=== PATIENT | female | born 1955 | race Caucasian/White ===

== ENCOUNTER 2017-12-20 09:06 | Emergency (ER) | payer OTHER ==
--- NOTE | 2017-12-20 09:11 | EDPHY ---
H & P Time Seen by Provider: 12/20/17 09:06 HPI/ROS: CHIEF COMPLAINT: Left ankle injury HISTORY OF PRESENT ILLNESS: Stepped wrong on it twisted it think she broke it. Can't walk on it. Arrives by EMS with ankle pain which is moderate, started just after she twisted it. Does not radiate. Not associated with weakness or numbness in the foot or knee or hip symptoms. REVIEW OF SYSTEMS: Eye: no change in vision ENT: no sore throat Cardiac: no chest pain or syncope Pulmonary: no cough or SOB Abdomen: no vomiting, diarrhea, abdominal pain Musculoskeletal: no back pain Skin: no rash Neuro: no headache Constitutional: no fever : no urinary symptoms A comprehensive 10 point review of systems is otherwise negative aside from elements mentioned in the history of present illness. 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 General Appearance: Alert and conversant, cooperative. Eyes: No scleral icterus. ENT, Mouth: Normal mucous membranes. Respiratory: Normal respiratory effort, breath sounds equal, lungs are clear to auscultation. Cardiovascular: Regular rate and rhythm. Normal dorsalis pedis pulse in the left foot. Gastrointestinal: Abdomen is soft and non tender. Neurological: Alert, face symmetric, normal motor and sensory in extremities, including the left foot. Skin: Warm and dry, no rashes. Musculoskeletal: Left ankle lateral tenderness and swelling extending down into the foot below the malleolus but no 5th metatarsal tenderness. Proximal tib-fib on the left leg is nontender in the remainder of the extremities nontender. Psychiatric: Not agitated. Emergency Department course/MDM: Declined pain medication initially. X-rays of the left foot and ankle ordered. 946: Oblique distal fibula fracture, nondisplaced. Boot, crutches, nonweightbearing, work comp or orthopedic follow-up tomorrow. Warned return to work will be determined by follow-up clinic. Constitutional: Initial Vital Signs Temperature (C) 36.7 C 12/20/17 09:17 Heart Rate 76 12/20/17 09:17 Respiratory Rate 16 12/20/17 09:17 Blood Pressure 177/114 H 12/20/17 09:17 O2 Sat (%) 94 12/20/17 09:17 O2 Delivery Mode Room Air Allergies/Adverse Reactions: No Known Drug Allergies Allergy (Verified 12/20/17 09:19) Medical Decision Making - Diagnostics Imaging Results: Imaging Impressions Ankle X-Ray 12/20/17 09:10 Impression: 1. Nondisplaced oblique fracture distal fibula below the ankle mortise level. 2. Calcific fragment adjacent to the distal aspect of the calcaneus near the calcaneocuboid joint that could represent a small chip or avulsion fracture with adjacent soft tissue swelling. 3. Moderate cortical/periosteal thickening along the lateral aspect of the fourth metatarsal shaft. This could represent previous stress fracture response. Foot X-Ray 12/20/17 09:10 Impression: 1. Nondisplaced oblique fracture distal fibula below the ankle mortise level. 2. Calcific fragment adjacent to the distal aspect of the calcaneus near the calcaneocuboid joint that could represent a small chip or avulsion fracture with adjacent soft tissue swelling. 3. Moderate cortical/periosteal thickening along the lateral aspect of the fourth metatarsal shaft. This could represent previous stress fracture response. Imaging: I viewed and interpreted images myself Departure - Departure Disposition: Home, Routine, Self-Care Clinical Impression: Closed left fibular fracture Qualifiers: Encounter type: initial encounter Fibula location: distal Fracture morphology: unspecified fracture morphology Qualified Code(s): S82.832A - Other fracture of upper and lower end of left fibula, initial encounter for closed fracture Condition: Good Instructions: Ankle Fracture (ED) Additional Instructions: Crutches and nonweightbearing left ankle. Orthopedic or work comp follow-up tomorrow. No work until cleared by follow-up clinic. Referrals: Jamie Armendariz MD [Medical Doctor] - As per Instructions
[2017-12-20 10:14] VITALS: BP 167/95
== END 2017-12-20 10:03 | disposition home or self-care (01) ==
LOC: EDUNIT#
DX: S82.832A Other fracture of upper and lower end of left fibula, initial encounter for closed fracture (principal); X50.1XXA Overexertion from prolonged static or awkward postures, initial encounter; Y92.9 Unspecified place or not applicable; Y93.9 Activity, unspecified; Y99.9 Unspecified external cause status
CPT/HCPCS: L4386